=== PATIENT | female | born 1980 | race African-American/Black ===

== ENCOUNTER 2017-04-22 10:55 | Emergency (ER) | payer OTHER ==
[~2017-04-22] VITALS: Ht 167.6 cm; Wt 90.0 kg
[2017-04-22 11:57] LABS: BASOPHILS % 0.4 % (0.0-2.0); EOSINOPHILS % 0.3 % (0.0-5.0); HEMATOCRIT. 30.5 % (36.0-48.0); HEMOGLOBIN. 10.4 g/dL (12.0-16.0); LYMPHOCYTES % 18.8 % (20.0-50.0); MEAN CORPUSCULAR HEMOGLOBIN 27.9 pg (28.0-32.0); MEAN CORPUSCULAR VOLUME 81.9 fL (81.0-99.0); MEAN PLATELET VOLUME 7.7 fl (7.4-10.4); MONOCYTES % 8.3 % (2.0-8.0); NEUTROPHILS % 72.2 % (40.0-76.0); PLATELET 260 x1000/uL (130-400); RED BLOOD CELL COUNT 3.73 mill/uL (4.2-5.4); RED CELL DISTRIBUTION WIDTH 13.5 % (11.6-14.6)
[2017-04-22 11:58] LABS: CHLORIDE 103 mEq/L (98-107)
[2017-04-22 12:08] LABS: CARBON DIOXIDE 25 mEq/L (21-32)
[2017-04-22 12:09] LABS: TROPONIN I < 0.02 ng/mL (0.00-0.04)
[2017-04-22] MEDS ORDERED: SODIUM CHLORIDE 0.9% 1,000 ML IV ONE (12:30)
[2017-04-22 14:49] VITALS: BP 110/67
== END 2017-04-22 14:52 | disposition home or self-care (01) ==
LOC: ER 11:09
DX: O26.891 Other specified pregnancy related conditions, first trimester (principal); R55 Syncope and collapse; Z88.5 Allergy status to narcotic agent; Z3A.01 Less than 8 weeks gestation of pregnancy
CPT/HCPCS: 36415; 80053; 81025; 82962; 83735; 84484; 85025; 93005; 96360; 96361; 99285; J7030; Z7610